=== PATIENT | female | born 1980 | race Caucasian/White ===

== ENCOUNTER → 2023-08-26 11:28 | Outpatient (REF) | payer OTHER, SELFPAY | LOC: WDC 11:28 | PROVIDERS: ATTENDING PHYSICIAN Family Medicine | DX: Z12.31 Encounter for screening mammogram for malignant neoplasm of breast (principal) | CPT/HCPCS: 77063; 77067 ==

== ENCOUNTER → 2024-09-12 13:11 | Outpatient (REF) | payer OTHER, SELFPAY | LOC: WDC 13:11 | PROVIDERS: ATTENDING PHYSICIAN Family Medicine | DX: Z12.31 Encounter for screening mammogram for malignant neoplasm of breast (principal) | CPT/HCPCS: 77063; 77067 ==